=== PATIENT | female | born 1995 | race Caucasian/White ===

== ENCOUNTER 2018-05-01 08:59 | Emergency (ER) | payer MEDICAID ==
[~2018-05-01] VITALS: Ht 154.9 cm; Wt 50.0 kg
[~2018-05-01 08:59] MED LIST: CLIN300C85 PO; ONDA4TAB6 PO; PRED10TA PO
[2018-05-01 10:09] LABS: COLOR,URINE YELLOW (Yellow); GLUCOSE, URINE NEGATIVE (Neg); KETONES,URINE NEGATIVE (Neg); LEUKOCYTE ESTERASE ,URINE SMALL (Neg); NITRITES, URINE POSITIVE (Neg); PH,URINE 7.5 (4.8-8.0); PROTEIN,URINE TRACE mg/dl (Neg); UROBILINOGEN,URINE 0.2 E.U/dL (0.2-1.0)
[2018-05-01 10:11] LABS: CLARITY,URINE SLIGHTLY CLOUDY (Clear); OCCULT BLOOD,URINE NEGATIVE (Neg)
[2018-05-01 10:12] LABS: UA COLLECTION TYPE CLN CATCH MIDSTREAM
[2018-05-01 10:14] LABS: URINE HCG NEGATIVE (NEG)
[2018-05-01 10:22] LABS: BACTERIA,URINE 4+ /HPF (Neg); RBC,URINE NONE SEEN /HPF (0-2); SQUAMOUS EPITHELIAL CELL,UR FEW /LPF (FEW); WBC,URINE 50-100 /HPF (0-4)
[2018-05-01 10:25] LABS: BASOPHILS % (AUTO) 0.1 % (0-1); EOSINOPHILS % (AUTO) 0.4 % (0-6); HEMATOCRIT 34.2 % (35.0-45.0); HEMOGLOBIN 12.1 g/dl (12.0-16.0); LYMPHOCYTES # (AUTO) 1.1 X10'3 (1.1-4.8); LYMPHOCYTES % (AUTO) 10.9 % (21-51); MEAN CORPUSCULAR HEMOGLOBIN 30.3 PG (27.0-31.0); MEAN CORPUSCULAR HGB CONC 35.5 % (33.0-36.5); MEAN CORPUSCULAR VOLUME 85.3 FL (78-98); MEAN PLATELET VOLUME 9.2 FL (7.4-10.4); MONOCYTES # (AUTO) 0.6 X10'3 (0-0.9); MONOCYTES % (AUTO) 6.3 % (2-12); NEUTROPHILS # (AUTO) 8.5 X10'3 (1.8-7.7); NEUTROPHILS % (AUTO) 82.3 % (42-75); PLATELET COUNT 265 X10'3 (140-440); RED BLOOD COUNT 4.01 X10'6 (4.20-5.60); RED CELL DISTRIBUTION WIDTH 12.8 % (11.5-14.5); WHITE BLOOD COUNT 10.2 X10'3 (4.5-11.0)
[2018-05-01 10:28] LABS: ALANINE AMINOTRANSFERASE 20 U/L (12-78); ALBUMIN 3.4 G/DL (3.4-5.0); ALBUMIN/GLOBULIN RATIO 0.9 (1.1-1.5); ALKALINE PHOSPHATASE 58 IU/L (46-116); ANION GAP 13 (8-16); ASPARTATE AMINO TRANSFERASE 14 U/L (10-37); BILIRUBIN,TOTAL 0.8 MG/DL (0.1-1.0); BLOOD UREA NITROGEN 11 MG/DL (7-18); BUN/CREATININE RATIO 14.3 (6.6-38.0); CALCIUM 8.9 MG/DL (8.5-10.1); CHLORIDE 101 MMOL/L (99-107); CREATININE 0.77 MG/DL (0.40-0.90); GLUCOSE 120 MG/DL (70-104); LIPASE 75 U/L (73-393); POTASSIUM 3.6 MMOL/L (3.5-5.1); SODIUM 134 MMOL/L (135-145); TOTAL CARBON DIOXIDE 19.6 MMOL/L (24-32); TOTAL PROTEIN 7.2 G/DL (6.4-8.2); eGFR > 90 ML/MIN
[2018-05-01 10:29] LABS: PROTHROMBIN TIME 10.6 SECONDS (9.0-12.0)
[2018-05-01] MEDS ORDERED: normal saline 1000ML IV soln IVB ONE ×2 (10:40)
[2018-05-01] MEDS ORDERED: CefTRIAXone 2gm/D5W 50ml 50 ML IV ONE (10:40)
[2018-05-01] MEDS ORDERED: azithromycin 250mg tablet PO ONE (10:50)
[2018-05-01] MEDS ORDERED: ondansetron/PF 4mg/2ml inj IV ONE (10:50)
[2018-05-01] MEDS ORDERED: ketorolac tromethamine 15mg/ml inj. IV ONE (10:50)
[2018-05-01] MEDS ORDERED: morphine 4 MG/ML inj SYRINge IV ONE (10:50)
[2018-05-01] MEDS ORDERED: HYDR-4383 PO (12:12)
[2018-05-01] MEDS ORDERED: CEPH250T PO (12:12)
[2018-05-01 13:18] VITALS: BP 114/50
== END 2018-05-01 13:31 | disposition home or self-care (01) ==
LOC: ER 08:59
DX: N12 Tubulo-interstitial nephritis, not specified as acute or chronic (principal); N39.0 Urinary tract infection, site not specified; G89.29 Other chronic pain; F17.200 Nicotine dependence, unspecified, uncomplicated; F15.90 Other stimulant use, unspecified, uncomplicated; Z88.8 Allergy status to other drugs, medicaments and biological substances; Z79.2 Long term (current) use of antibiotics; Z79.899 Other long term (current) drug therapy
CPT/HCPCS: 36415; 80053; 81001; 81025; 83690; 85025; 85610; 87077; 87088; 87186; 87491; 87591; 96365; 96366; 96375; 99283; J0696; J1885; J2270; J2405; J7030

== ENCOUNTER 2019-04-23 00:35 | Emergency (ER) | payer MEDICAID ==
[~2019-04-23] VITALS: Ht 154.9 cm; Wt 49.5 kg
[~2019-04-23 00:35] MED LIST changes: +CEPH250T PO; +CLIN-90 PO; -CLIN300C85 PO; +HYDR-4383 PO
[2019-04-23] MEDS ORDERED: ketorolac trometh. 30mg/ml inj. IV ONE (00:50)
[2019-04-23] MEDS ORDERED: metoclopramide 5 mg/ml inj IV ONE (00:50)
[2019-04-23] MEDS ORDERED: morphine 4 MG/ML inj SYRINge IV ONE (00:50)
[2019-04-23 01:04] LABS: URINE HCG NEGATIVE (NEG)
[2019-04-23 01:07] LABS: BASOPHILS # (AUTO) 0.1 X10'3 (0-0.2); EOSINOPHILS # (AUTO) 0.2 X10'3 (0-0.9); EOSINOPHILS % (AUTO) 3.9 % (0-6); HEMATOCRIT 35.9 % (35.0-45.0); HEMOGLOBIN 12.3 g/dl (12.0-16.0); LYMPHOCYTES # (AUTO) 2.4 X10'3 (1.1-4.8); LYMPHOCYTES % (AUTO) 38.7 % (21-51); MEAN CORPUSCULAR HGB CONC 34.3 g/dL (33.0-36.5); MEAN CORPUSCULAR VOLUME 84.5 FL (78-98); MEAN PLATELET VOLUME 8.6 FL (7.4-10.4); MONOCYTES # (AUTO) 0.6 X10'3 (0-0.9); MONOCYTES % (AUTO) 10.1 % (2-12); NEUTROPHILS # (AUTO) 2.9 X10'3 (1.8-7.7); NEUTROPHILS % (AUTO) 46.3 % (42-75); PLATELET COUNT 319 X10'3 (140-440); RED BLOOD COUNT 4.25 X10'6 (4.20-5.60); RED CELL DISTRIBUTION WIDTH 13.3 % (11.5-14.5); WHITE BLOOD COUNT 6.3 X10'3 (4.5-11.0)
[2019-04-23 01:09] LABS: CLARITY,URINE CLOUDY (Clear); COLOR,URINE YELLOW (Yellow); GLUCOSE, URINE NEGATIVE (Neg); KETONES,URINE NEGATIVE (Neg); LEUKOCYTE ESTERASE ,URINE SMALL (Neg); NITRITES, URINE POSITIVE (Neg); OCCULT BLOOD,URINE LARGE (Neg); PROTEIN,URINE NEGATIVE (Neg); UROBILINOGEN,URINE 0.2 E.U/dL (0.2-1.0)
[2019-04-23 01:12] LABS: UA COLLECTION TYPE CLN CATCH MIDSTREAM
[2019-04-23 01:17] LABS: URINE AMPHETAMINE SCREEN POSITIVE (Neg); URINE BARBITUATE SCREEN NEGATIVE (Neg); URINE BENZODIAZEPINES SCREEN NEGATIVE (Neg); URINE CANNABINOID SCREEN NEGATIVE (Neg); URINE COCAINE SCREEN NEGATIVE (Neg); URINE METHADONE SCREEN NEGATIVE (Neg); URINE OPIATE SCREEN NEGATIVE (Neg); URINE PHENCYCLIDINE SCREEN NEGATIVE (Neg)
[2019-04-23 01:18] LABS: ALANINE AMINOTRANSFERASE 25 U/L (12-78); ALBUMIN 3.8 G/DL (3.4-5.0); ALKALINE PHOSPHATASE 61 IU/L (46-116); ANION GAP 13 (8-16); ASPARTATE AMINO TRANSFERASE 21 U/L (10-37); BILIRUBIN,TOTAL 0.4 MG/DL (0.1-1.0); BLOOD UREA NITROGEN 15 MG/DL (7-18); CALCIUM 9.2 MG/DL (8.5-10.1); CHLORIDE 104 MMOL/L (99-107); CREATININE 0.94 MG/DL (0.40-0.90); GLUCOSE 103 MG/DL (70-104); POTASSIUM 3.8 MMOL/L (3.5-5.1); SODIUM 140 MMOL/L (135-145); TOTAL CARBON DIOXIDE 23.4 MMOL/L (24-32); TOTAL PROTEIN 7.6 G/DL (6.4-8.2); eGFR 73 ML/MIN
[2019-04-23 01:21] LABS: WBC,URINE 0-4 /HPF (0-4)
[2019-04-23 01:22] LABS: BACTERIA,URINE 4+ /HPF (Neg); SQUAMOUS EPITHELIAL CELL,UR FEW /LPF (FEW)
[2019-04-23] MEDS ORDERED: CIPR-259 PO (01:32)
[2019-04-23] MEDS ORDERED: CefTRIAXone 2gm/D5W 50ml 50 ML IV ONE (01:35)
[2019-04-23 02:16] VITALS: BP 136/88
== END 2019-04-23 02:18 | disposition home or self-care (01) ==
LOC: ER 00:35
DX: N12 Tubulo-interstitial nephritis, not specified as acute or chronic (principal); G89.29 Other chronic pain; F15.90 Other stimulant use, unspecified, uncomplicated; F10.99 Alcohol use, unspecified with unspecified alcohol-induced disorder; Z98.890 Other specified postprocedural states; Z88.8 Allergy status to other drugs, medicaments and biological substances; Z79.899 Other long term (current) drug therapy; Y90.9 Presence of alcohol in blood, level not specified
CPT/HCPCS: 36415; 80053; 80305; 81001; 81025; 85025; 87088; 96365; 96375; 99283; J0696; J1885; J2270; J2765; 87077; 87186

== ENCOUNTER 2019-07-06 22:12 | Emergency (ER) | payer MEDICAID ==
[~2019-07-06] VITALS: Ht 154.9 cm; Wt 50.5 kg
[~2019-07-06 22:12] MED LIST changes: -CEPH250T PO; +LIDOcaine 1% W/epiNEPHrine 1:100,000 20ml vial ONE
[2019-07-06] MEDS ORDERED: TETanus/Pertussis (Acell)/Diphther VAC/PF (Tdap-Adult) 0.5ml syringe IMVAC ONE (22:35)
[2019-07-06] MEDS ORDERED: DOXY100C76 PO (22:46)
[2019-07-06] MEDS ORDERED: DOXYCYCLINE 100MG CAPSULE PO STA (23:07)
[2019-07-06 23:29] VITALS: BP 132/96
== END 2019-07-06 23:30 | disposition home or self-care (01) ==
LOC: ER 22:13
DX: L02.416 Cutaneous abscess of left lower limb (principal); F15.90 Other stimulant use, unspecified, uncomplicated; G89.29 Other chronic pain; Z98.890 Other specified postprocedural states; Z88.1 Allergy status to other antibiotic agents; Z79.899 Other long term (current) drug therapy
CPT/HCPCS: 10060; 90471; 90715; 99283

== ENCOUNTER 2019-07-08 22:28 | Emergency (ER) | payer MEDICAID ==
[~2019-07-08] VITALS: Ht 154.9 cm; Wt 50.0 kg
[~2019-07-08 22:28] MED LIST changes: +DOXY100C76 PO; -LIDOcaine 1% W/epiNEPHrine 1:100,000 20ml vial ONE
[2019-07-08 22:34] VITALS: BP 148/82
== END 2019-07-09 00:05 | disposition home or self-care (01) ==
LOC: ER 22:29
DX: Z48.01 Encounter for change or removal of surgical wound dressing (principal); F15.90 Other stimulant use, unspecified, uncomplicated; G89.29 Other chronic pain; Z87.440 Personal history of urinary (tract) infections; Z88.8 Allergy status to other drugs, medicaments and biological substances; Z79.2 Long term (current) use of antibiotics; Z79.899 Other long term (current) drug therapy
CPT/HCPCS: 99281; 99282

== ENCOUNTER 2019-11-12 18:24 | Emergency (ER) | payer MEDICAID ==
[~2019-11-12] VITALS: Ht 154.9 cm; Wt 49.5 kg
[~2019-11-12 18:24] MED LIST changes: -CLIN-90 PO; +CLIN-97 PO; -DOXY100C76 PO
[2019-11-12] MEDS ORDERED: vancomycin/NS 1 GM ADD-VANTAGE 250 ML IV ONE (20:35)
[2019-11-12] MEDS ORDERED: CefTRIAXone 2gm/D5W 50ml 50 ML IV ONE (20:35)
[2019-11-12] MEDS ORDERED: ondansetron/PF 4mg/2ml inj IV PRN (20:50)
[2019-11-12] MEDS ORDERED: morphine 4 MG/ML inj SYRINge IV PRN (20:50)
[2019-11-12 20:56] LABS: URINE HCG NEGATIVE (NEG)
[2019-11-12 20:58] LABS: CLARITY,URINE CLEAR (Clear); COLOR,URINE YELLOW (Yellow); GLUCOSE, URINE NEGATIVE (Neg); KETONES,URINE NEGATIVE (Neg); LEUKOCYTE ESTERASE ,URINE NEGATIVE (Neg); NITRITES, URINE NEGATIVE (Neg); OCCULT BLOOD,URINE NEGATIVE (Neg); PH,URINE 5.5 (4.8-8.0); PROTEIN,URINE NEGATIVE (Neg); UROBILINOGEN,URINE 0.2 E.U/dL (0.2-1.0)
[2019-11-12 21:00] LABS: UA COLLECTION TYPE CLN CATCH MIDSTREAM
[2019-11-12 21:10] LABS: URINE AMPHETAMINE SCREEN POSITIVE (Neg); URINE BARBITUATE SCREEN NEGATIVE (Neg); URINE BENZODIAZEPINES SCREEN NEGATIVE (Neg); URINE CANNABINOID SCREEN POSITIVE (Neg); URINE COCAINE SCREEN NEGATIVE (Neg); URINE METHADONE SCREEN NEGATIVE (Neg); URINE OPIATE SCREEN NEGATIVE (Neg); URINE PHENCYCLIDINE SCREEN NEGATIVE (Neg)
[2019-11-12 21:11] LABS: BASOPHILS % (AUTO) 0.3 % (0-1); EOSINOPHILS # (AUTO) 0.1 X10'3 (0-0.9); EOSINOPHILS % (AUTO) 1.5 % (0-6); HEMATOCRIT 34.2 % (35.0-45.0); HEMOGLOBIN 11.1 g/dl (12.0-16.0); LYMPHOCYTES % (AUTO) 20.9 % (21-51); MEAN CORPUSCULAR HEMOGLOBIN 27.8 PG (27.0-31.0); MEAN CORPUSCULAR HGB CONC 32.6 g/dL (33.0-36.5); MEAN CORPUSCULAR VOLUME 85.1 FL (78-98); MEAN PLATELET VOLUME 9.4 FL (7.4-10.4); MONOCYTES # (AUTO) 0.8 X10'3 (0-0.9); MONOCYTES % (AUTO) 7.9 % (2-12); NEUTROPHILS # (AUTO) 6.7 X10'3 (1.8-7.7); NEUTROPHILS % (AUTO) 69.4 % (42-75); PLATELET COUNT 246 X10'3 (140-440); RED BLOOD COUNT 4.01 X10'6 (4.20-5.60); RED CELL DISTRIBUTION WIDTH 13.6 % (11.5-14.5); WHITE BLOOD COUNT 9.7 X10'3 (4.5-11.0)
[2019-11-12 21:18] LABS: ALANINE AMINOTRANSFERASE 19 U/L (12-78); ALBUMIN 3.4 G/DL (3.4-5.0); ALBUMIN/GLOBULIN RATIO 0.9 (1.1-1.5); ALKALINE PHOSPHATASE 56 IU/L (46-116); ANION GAP 9 (8-16); ASPARTATE AMINO TRANSFERASE 15 U/L (10-37); BILIRUBIN,TOTAL 0.4 MG/DL (0.1-1.0); BLOOD UREA NITROGEN 15 MG/DL (7-18); BUN/CREATININE RATIO 18.5 (6.6-38.0); CALCIUM 8.5 MG/DL (8.5-10.1); CHLORIDE 106 MMOL/L (99-107); CREATININE 0.81 MG/DL (0.40-0.90); GLUCOSE 85 MG/DL (70-104); MAGNESIUM 1.9 MG/DL (1.5-2.4); POTASSIUM 3.6 MMOL/L (3.5-5.1); SODIUM 139 MMOL/L (135-145); TOTAL CARBON DIOXIDE 23.7 MMOL/L (24-32); eGFR 86 ML/MIN
--- NOTE | 2019-11-12 21:46 | NUR ---
GAVE THE PATIENT FOOD AND DRINK
[2019-11-12] MEDS ORDERED: iohexol 350MG/ML 100ml bottle IV ONE (21:47)
--- NOTE | 2019-11-12 21:59 | NUR ---
PT TO CT
[2019-11-12] MEDS ORDERED: IBUP-1984 PO (22:17)
[2019-11-12] MEDS ORDERED: ACET-2119 PO (22:17)
--- NOTE | 2019-11-12 22:53 | NUR ---
HEAD OF BED ADJUSTED PER PTS REQUEST. THE LIGHTS ARE DIMMED AND PT DENIES OTHER NEEDS.
[2019-11-12] MEDS ORDERED: CEPH-572 PO (23:36)
[2019-11-12] MEDS ORDERED: SULF1TAB49 PO (23:36)
[2019-11-13 00:12] VITALS: BP 121/73
== END 2019-11-13 00:14 | disposition home or self-care (01) ==
LOC: ER 18:25
DX: L03.116 Cellulitis of left lower limb (principal); F15.10 Other stimulant abuse, uncomplicated; G89.29 Other chronic pain; Z98.890 Other specified postprocedural states; Z88.8 Allergy status to other drugs, medicaments and biological substances; Z79.899 Other long term (current) drug therapy
CPT/HCPCS: 36415; 73701; 80053; 80305; 81003; 81025; 83605; 83735; 84145; 85025; 87040; 96365; 96367; 96375; 99285; J0696; J2270; J2405; J3370; Q9967

== ENCOUNTER 2020-03-05 03:04 | Emergency (ER) | payer MEDICAID ==
[~2020-03-05] VITALS: Ht 154.9 cm; Wt 50.5 kg
[~2020-03-05 03:04] MED LIST changes: +ACET-2119 PO; -CLIN-97 PO; -HYDR-4383 PO; +IBUP-1984 PO; -ONDA4TAB6 PO; -PRED10TA PO
[2020-03-05] MEDS ORDERED: clindamycin phosphate inj 600 MG in normal saline 50ml IV soln 50 ML IV ONE (03:20)
[2020-03-05] MEDS ORDERED: ceFAZolin 1GM/D5W- ADD-VANTAGE 50 ML IV ONE (03:20)
[2020-03-05] MEDS ORDERED: ketorolac trometh. 30mg/ml inj. IV ONE (03:20)
[2020-03-05] MEDS ORDERED: normal saline 1000ml 1,000 ML IV ONE (03:20)
[2020-03-05] MEDS ORDERED: CLIN-97 PO (03:22)
[2020-03-05] MEDS ORDERED: DOXY100T56 PO (03:22)
[2020-03-05] MEDS ORDERED: ONDA4TAB6 PO (03:22)
[2020-03-05] MEDS ORDERED: clindamycin 600mg/D5W 50ml 50 ML IV ONE (03:30)
[2020-03-05 05:00] VITALS: BP 122/80
== END 2020-03-05 05:02 | disposition home or self-care (01) ==
LOC: ER 03:04
DX: L03.116 Cellulitis of left lower limb (principal); G89.29 Other chronic pain; F15.90 Other stimulant use, unspecified, uncomplicated; Z72.89 Other problems related to lifestyle; Z88.8 Allergy status to other drugs, medicaments and biological substances; Z79.899 Other long term (current) drug therapy
CPT/HCPCS: 96365; 96367; 96375; 99284; J0690; J1885; J7030; J3490

== ENCOUNTER 2022-01-10 06:17 | Inpatient (IN) | payer MEDICAID ==
[~2022-01-10] VITALS: Ht 154.9 cm; Wt 50.5 kg
[~2022-01-10 06:17] MED LIST changes: +CLIN-97 PO; +ONDA4TAB6 PO
[2022-01-10] MEDS ORDERED: acetaminophen 325mg tablet PO ONE (07:05)
[2022-01-10] MEDS ORDERED: normal saline 1000ML IV soln IV ONE (07:30)
[2022-01-10] MEDS ORDERED: piperacillin/tazo 3.375gm/50ml 50 ML IV ONE (07:30)
[2022-01-10] MEDS ORDERED: morphine 2 MG/ML inj. syringe IV PRN ×3 (07:30→11:35)
[2022-01-10 07:37] LABS: URINE HCG NEGATIVE (NEG)
[2022-01-10 07:46] LABS: BASOPHILS % (AUTO) 0.1 % (0-1); EOSINOPHILS % (AUTO) 0 % (0-6); HEMATOCRIT 34.7 % (35.0-45.0); HEMOGLOBIN 11.4 g/dl (12.0-16.0); LYMPHOCYTES # (AUTO) 0.6 X10'3 (1.1-4.8); LYMPHOCYTES % (AUTO) 3.8 % (21-51); MEAN CORPUSCULAR HEMOGLOBIN 27.8 PG (27.0-31.0); MEAN CORPUSCULAR HGB CONC 32.8 g/dL (33.0-36.5); MEAN CORPUSCULAR VOLUME 84.7 FL (78-98); MEAN PLATELET VOLUME 9.1 FL (7.4-10.4); MONOCYTES # (AUTO) 0.4 X10'3 (0-0.9); MONOCYTES % (AUTO) 2.4 % (2-12); NEUTROPHILS # (AUTO) 14.4 X10'3 (1.8-7.7); NEUTROPHILS % (AUTO) 93.7 % (42-75); PLATELET COUNT 262 X10'3 (140-440); RED BLOOD COUNT 4.09 X10'6 (4.20-5.60); RED CELL DISTRIBUTION WIDTH 14.2 % (11.5-14.5); WHITE BLOOD COUNT 15.4 X10'3 (4.5-11.0)
[2022-01-10 07:47] LABS: CLARITY,URINE SLIGHTLY CLOUDY (Clear); COLOR,URINE YELLOW (Yellow); GLUCOSE, URINE NEGATIVE (Neg); KETONES,URINE TRACE mg/dl (Neg); LEUKOCYTE ESTERASE ,URINE NEGATIVE (Neg); NITRITES, URINE POSITIVE (Neg); OCCULT BLOOD,URINE NEGATIVE (Neg); PH,URINE 7.5 (4.8-8.0); PROTEIN,URINE 30 mg/dl (Neg)
[2022-01-10 07:52] LABS: UA COLLECTION TYPE CLN CATCH MIDSTREAM
[2022-01-10 07:54] LABS: SQUAMOUS EPITHELIAL CELL,UR MODERATE /LPF (FEW)
[2022-01-10 07:56] LABS: BACTERIA,URINE 4+ /HPF (Neg); WBC,URINE 30-50 /HPF (0-4)
[2022-01-10 07:57] LABS: WBC CLUMPS,URINE FEW /HPF (NEGATIVE)
[2022-01-10 07:58] LABS: ALANINE AMINOTRANSFERASE 67 U/L (12-78); ALBUMIN 2.9 G/DL (3.4-5.0); ALBUMIN/GLOBULIN RATIO 0.7 (1.1-1.5); ALKALINE PHOSPHATASE 96 IU/L (46-116); ANION GAP 12 (8-16); ASPARTATE AMINO TRANSFERASE 51 U/L (10-37); BILIRUBIN,TOTAL 0.4 MG/DL (0.1-1.0); BLOOD UREA NITROGEN 12 MG/DL (7-18); BUN/CREATININE RATIO 16.2 (6.6-38.0); CALCIUM 8.2 MG/DL (8.5-10.1); CHLORIDE 102 MMOL/L (99-107); CREATININE 0.74 MG/DL (0.40-0.90); GLUCOSE 121 MG/DL (70-104); POTASSIUM 3.5 MMOL/L (3.5-5.1); SODIUM 137 MMOL/L (135-145); TOTAL CARBON DIOXIDE 23.1 MMOL/L (24-32); TOTAL PROTEIN 6.8 G/DL (6.4-8.2); eGFR > 90 ML/MIN
[2022-01-10] MEDS ORDERED: clindamycin 600mg/D5W 50ml 50 ML IV ONE (08:00)
[2022-01-10] MEDS ORDERED: vancomycin/NS 1 GM ADD-VANTAGE 250 ML IV ONE (08:00)
[2022-01-10 08:03] LABS: PLATELET ESTIMATE NORMAL; TOTAL CELLS COUNTED 100
[2022-01-10 08:51] LABS: C-REACTIVE PROTEIN 13.93 MG/DL (0.0-0.5)
[2022-01-10] MEDS ORDERED: iohexol 350MG/ML 100ml bottle IV ONE (09:20)
[2022-01-10] MEDS ORDERED: magnesium Cl slow-release 64mg tablet PO PRN (11:35)
[2022-01-10] MEDS ORDERED: POTASSIUM BICARB 20meq eff tab 20 MEQ TABLET.EFF PO PRN ×2 (11:35)
[2022-01-10] MEDS ORDERED: potassium CL 10mEq/100ml bag 100 ML IV PRN (11:35)
[2022-01-10] MEDS ORDERED: magnesium 4gm in 100ml NS 100 ML IV PRN (11:35)
[2022-01-10] MEDS: normal saline 1000ml 1,000 ML IV SCH ×3 (11:35→22:00)
[2022-01-10] MEDS ORDERED: ondansetron/PF 4mg/2ml inj IV PRN (11:35)
[2022-01-10] MEDS ORDERED: magnesium 2GM in 50ml NS 50 ML IV PRN (11:35)
[2022-01-10] MEDS ORDERED: magnesium hydroxide 30ml (MOM) UD suspension PO PRN (11:35)
[2022-01-10] MEDS ORDERED: mag hydrox/Alum hydrox/simeth 30ml oral suspension PO PRN (11:35)
[2022-01-10] MEDS ORDERED: acetaminophen 325mg tablet PO PRN (11:35)
[2022-01-10 11:59] LABS: MAGNESIUM 1.7 MG/DL (1.5-2.4)
[2022-01-10] MEDS ORDERED: NO HOME MEDS (13:24)
[2022-01-10 14:30] VITALS: BP 105/62
[2022-01-10] MEDS ORDERED: LORazepam 2 mg/ml vial IV PRN ×2 (14:40→23:10)
[2022-01-10] MEDS: piperacillin/tazo 4.5gm/100ml 100 ML IV SCH (15:34)
--- NOTE | 2022-01-10 18:00 | NUR ---
Ayah Serra RN pulled ativan from omni but the omni would not let her countback. CRN was able to resolve discrepancy. Once administered we needed to waste. [facility] did not prompt to waste. Misc waste of 1.75ml/1.5mg of ativan completed.
--- NOTE | 2022-01-10 18:26 | NUR ---
Problems reprioritized. Patient report given, questions answered & plan of care reviewed with GREGORY Infante.
--- NOTE | 2022-01-10 19:15 | NUR ---
[place]rientee documentation: I have reviewed and agree with all interventions, assessments performed and documented by GREGORY Poon.
[2022-01-10] MEDS: K and/or MAG REPLACEMENT MC SCH (20:00)
[2022-01-10] MEDS: docusate sod 100mg capsule PO SCH (20:37)
[2022-01-10] MEDS: enoxaparin 30mg/0.3ml syringe SQ SCH (20:38)
[2022-01-10] MEDS: clindamycin 300mg/D5W 50mL 50 ML IV SCH (20:56)
[2022-01-10] MEDS: vancomycin/NS 1 GM ADD-VANTAGE 250 ML IV SCH (20:58)
[2022-01-11] MEDS: piperacillin/tazo 4.5gm/100ml 100 ML IV SCH ×2 (00:58→11:31)
[2022-01-11] MEDS: clindamycin 300mg/D5W 50mL 50 ML IV SCH ×3 (02:00→13:58)
--- NOTE | 2022-01-11 03:37 | NUR ---
pt under going withdraws trying to sleep refusing 2200 and 0200 vital this ivette Guo rn
[2022-01-11 06:00] VITALS: BP 121/60
[2022-01-11 06:41] LABS: BASOPHILS % (AUTO) 0.1 % (0-1); EOSINOPHILS % (AUTO) 0 % (0-6); HEMATOCRIT 33.4 % (35.0-45.0); HEMOGLOBIN 11.3 g/dl (12.0-16.0); LYMPHOCYTES # (AUTO) 1.1 X10'3 (1.1-4.8); LYMPHOCYTES % (AUTO) 8.4 % (21-51); MEAN CORPUSCULAR HEMOGLOBIN 28.5 PG (27.0-31.0); MEAN CORPUSCULAR HGB CONC 33.9 g/dL (33.0-36.5); MEAN CORPUSCULAR VOLUME 83.9 FL (78-98); MEAN PLATELET VOLUME 8.7 FL (7.4-10.4); MONOCYTES # (AUTO) 0.7 X10'3 (0-0.9); MONOCYTES % (AUTO) 5.4 % (2-12); NEUTROPHILS # (AUTO) 10.9 X10'3 (1.8-7.7); NEUTROPHILS % (AUTO) 86.1 % (42-75); PLATELET COUNT 260 X10'3 (140-440); RED BLOOD COUNT 3.98 X10'6 (4.20-5.60); RED CELL DISTRIBUTION WIDTH 13.7 % (11.5-14.5); WHITE BLOOD COUNT 12.6 X10'3 (4.5-11.0)
[2022-01-11 06:51] LABS: ALANINE AMINOTRANSFERASE 45 U/L (12-78); ALBUMIN 2.5 G/DL (3.4-5.0); ALBUMIN/GLOBULIN RATIO 0.6 (1.1-1.5); ALKALINE PHOSPHATASE 79 IU/L (46-116); ANION GAP 11 (8-16); ASPARTATE AMINO TRANSFERASE 29 U/L (10-37); BILIRUBIN,TOTAL 0.3 MG/DL (0.1-1.0); BLOOD UREA NITROGEN 12 MG/DL (7-18); BUN/CREATININE RATIO 19.4 (6.6-38.0); CALCIUM 8.2 MG/DL (8.5-10.1); CHLORIDE 103 MMOL/L (99-107); CREATININE 0.62 MG/DL (0.40-0.90); GLUCOSE 111 MG/DL (70-104); POTASSIUM 3.5 MMOL/L (3.5-5.1); SODIUM 139 MMOL/L (135-145); TOTAL CARBON DIOXIDE 25.2 MMOL/L (24-32); TOTAL PROTEIN 6.6 G/DL (6.4-8.2); eGFR > 90 ML/MIN
[2022-01-11] MEDS: vancomycin/NS 1 GM ADD-VANTAGE 250 ML IV SCH (08:00)
[2022-01-11] MEDS: normal saline 1000ml 1,000 ML IV SCH (08:31)
[2022-01-11] MEDS: K and/or MAG REPLACEMENT MC SCH (08:31)
[2022-01-11] MEDS: docusate sod 100mg capsule PO SCH (08:31)
[2022-01-11] MEDS: enoxaparin 30mg/0.3ml syringe SQ SCH (08:32)
--- NOTE | 2022-01-11 14:06 | NUR ---
Patient pulled out EJ IV access. Patient has no other access and refuses to let me establish new access so that IV antibiotics can be given. Patient has been notified of the risks and benefits of leaving the hospital AMA and has signed a document stating that she wanted to leave AMA.
[2022-01-11] MEDS ORDERED: VANCOMYCIN LEVEL IV ONE (19:30)
== END 2022-01-11 14:30 | disposition left against medical advice (07) | DRG 720 ==
LOC: ER 06:17 → ED HOLD 11:38 → PCU 3S 14:05
PROVIDERS: ADMIT Family Medicine; ATTEND Family Medicine
DX: A41.9 Sepsis, unspecified organism (principal); L03.116 Cellulitis of left lower limb; F15.90 Other stimulant use, unspecified, uncomplicated; F17.210 Nicotine dependence, cigarettes, uncomplicated; K50.90 Crohn's disease, unspecified, without complications; Z53.29 Procedure and treatment not carried out because of patient's decision for other reasons; G89.29 Other chronic pain; Z88.8 Allergy status to other drugs, medicaments and biological substances; Z87.440 Personal history of urinary (tract) infections; Z79.899 Other long term (current) drug therapy
CPT/HCPCS: 36415; 71045; 73701; 80053; 81001; 81025; 83605; 83735; 84145; 85007; 85025; 86140; 87040; 87077; 87088; 87186; 93971; 96365; 96368; 96375; 99285; A6449; G0378; J1650; J2060; J2270; J2405; J2543; J3370; J3490; J7030; Q9967